=== PATIENT | female | born 1965 | race Caucasian/White ===

== ENCOUNTER → 2023-06-08 09:24 | Outpatient (BNVA) | payer BC, SELFPAY | PROVIDERS: Visit Provider Nurse Practitioner | DX: G47.30 Sleep apnea, unspecified (principal); E78.5 Hyperlipidemia, unspecified | CPT/HCPCS: 80053; 80061; 84443; 85025 ==

== ENCOUNTER → 2023-09-30 11:09 | Outpatient (BNVA) | payer BC, SELFPAY | PROVIDERS: Visit Provider Internal Medicine Cardiovascular Disease | DX: R07.9 Chest pain, unspecified (principal) | CPT/HCPCS: 93005 ==

== ENCOUNTER 2023-10-20 06:23 | Outpatient (CLI) | payer BC, SELFPAY ==
--- NOTE | 2023-10-20 06:15 | USCV_ITS ---
Radha Siddiqui Age: 57 Gender: F : 1965 Exam Date: 10/20/2023 06:35 Ordering Phys: Sandra Olivo MD ([email or web address]) Technologist: Exam Location: [facility] – [place] Indication: murmur lv dilation BP: 120 / 70 HR: 103 Rhythm: Sinus Technical Quality: Adequate MEASUREMENTS (Male / Female) Normal Values 2D ECHO LV Diastolic Diameter PLAX 4.4 cm 4.2 - 5.9 / 3.9 - 5.3 cm IVS Diastolic Thickness 0.8 cm 0.6 - 1.0 / 0.6 - 0.9 cm IVS Systolic Thickness 1.4 cm LVPW Diastolic Thickness 1.1 cm 0.6 - 1.0 / 0.6 - 0.9 cm LVPW Systolic Thickness 1.4 cm LVOT Diameter 2.0 cm LV Ejection Fraction 2D Teich 67.7 % LV Ejection Fraction MOD 2C 57.1 % LV Ejection Fraction 2C AL 58.1 % LA Diameter 2.9 cm RA Systolic Volume 4C AL 47.1 ml RA Systolic Volume 4C MOD 46.5 ml Aorta at Sinotubular Diameter 2.8 cm IVC Diameter 1.8 cm M-MODE LA Ao Ratio MM 1.1 AV Cusp Separation MM 2.2 cm DOPPLER AV Peak Velocity 204.0 cm/s LVOT Peak Velocity 129.0 cm/s AV Area Cont Eq vti 1.9 cm squared AV Area Cont Eq pk 2.0 cm squared MV Peak Velocity 129.0 cm/s MV Area PHT 2.8 cm squared Mitral E to A Ratio 1.1 TR Peak Velocity 236.0 cm/s TR Peak Gradient 22.3 mmHg TR Mean Velocity 176.0 cm/s TR Mean Gradient 15.4 mmHg TR Velocity Time Integral 88.7 cm TV Peak E Velocity 105.0 cm/s PV Peak Velocity 107.0 cm/s FINDINGS Left Ventricle Normal left ventricular size and systolic function, EF 57%.no regional wall motion abnormalities. Right Ventricle The right ventricle is normal in size and function. Right Atrium The right atrium is normal in size. Left Atrium The left atrium is normal in size. Mitral Valve Left atrium, upper limit of normal size Aortic Valve Leaflets could not be visualized. Peak velocity across the aortic valve is 2.3 m/s. Mild aortic valve stenosis, mean gradient 7.4 mmHg, HAKAN 1.9 cm squared. Tricuspid Valve Trace tricuspid valve regurgitation. Estimated pulmonary artery peak systolic pressure, within normal limits Pulmonic Valve Pulmonic valve not well visualized. Pericardium Normal pericardium without effusion. Aorta Normal ascending aorta dimension. IVC Normal inferior vena cava. CONCLUSIONS Normal left ventricular size and systolic function, EF 57%.no regional wall motion abnormalities. Mild aortic valve stenosis, mean gradient 7.4 mmHg, HAKAN 1.9 cm squared. Cannot exclude bicuspid valve. Consider JALEN to better evaluate the aortic valveTrace tricuspid valve regurgitation. Estimated pulmonary artery peak systolic pressure, within normal limits. There is no pericardial effusion. No similar previous studies are available for comparison Dr Sandra Olivo MD [facility] (Electronically Signed) Final Date: 21 October 2023 08:58 S
== END 2023-10-20 06:24 | disposition home or self-care (01) ==
LOC: RAD 06:23
PROVIDERS: Visit Provider Internal Medicine Cardiovascular Disease
DX: I35.0 Nonrheumatic aortic (valve) stenosis (principal); I51.7 Cardiomegaly
CPT/HCPCS: 93306

== ENCOUNTER 2024-02-02 16:19 | Outpatient (CLI) | payer BC, SELFPAY ==
--- NOTE | 2024-02-02 16:20 | MM_ITS ---
WS: [id number] BILATERAL 3D TOMOSYNTHESIS DIGITAL SCREENING MAMMOGRAPHY WITH CAD CLINICAL INFORMATION: Z12.39 - Encounter for other screening for malignant neop... HISTORY: Screening mammogram. No current complaints. COMPARISON: 2020 TECHNIQUE: Bilateral CC and MLO views. FINDINGS: Scattered fibroglandular densities bilaterally. No suspicious focal mass, asymmetry, calcifications, or architectural distortion. No evidence of malignancy. Stable lymph nodes bilateral axilla. MM/[id number] IMPRESSION: BI-RADS: 2-Benign FOLLOW UP: 1 Year Follow-up Recommend return to annual screening mammography.
== END 2024-02-02 16:20 | disposition home or self-care (01) ==
PROVIDERS: PCP Nurse Practitioner; Visit Provider Nurse Practitioner
DX: Z12.31 Encounter for screening mammogram for malignant neoplasm of breast (principal)
CPT/HCPCS: 77063; 77067

== ENCOUNTER → 2024-03-29 11:20 | Outpatient (BNVA) | payer BC, SELFPAY | PROVIDERS: PCP Nurse Practitioner; Visit Provider Nurse Practitioner | DX: Z01.419 Encounter for gynecological examination (general) (routine) without abnormal findings (principal) | CPT/HCPCS: 88175 ==

== ENCOUNTER → 2024-04-18 15:34 | Outpatient (BNVA) | payer BC, SELFPAY | PROVIDERS: PCP Nurse Practitioner; Referring Provider Nurse Practitioner; Visit Provider Nurse Practitioner | DX: M77.31 Calcaneal spur, right foot (principal); M19.071 Primary osteoarthritis, right ankle and foot; M79.671 Pain in right foot; M79.672 Pain in left foot | CPT/HCPCS: 73630 ==

== ENCOUNTER → 2025-04-05 08:39 | Outpatient (BNVA) | payer BC, SELFPAY | PROVIDERS: PCP Nurse Practitioner; Visit Provider Nurse Practitioner | DX: R73.9 Hyperglycemia, unspecified (principal) | CPT/HCPCS: 80053; 80061; 83036; 85025 ==

== ENCOUNTER → 2025-06-09 08:17 | Outpatient (BNVA) | payer BC, SELFPAY | PROVIDERS: PCP Nurse Practitioner; Referring Provider Nurse Practitioner; Visit Provider Nurse Practitioner | DX: E11.9 Type 2 diabetes mellitus without complications (principal) | CPT/HCPCS: 82951; 83036 ==